=== PATIENT | female | born 1955 | race Caucasian/White ===

== ENCOUNTER 2018-11-28 19:31 | Emergency (ER) | payer OTHER, SELFPAY ==
[~2018-11-28] VITALS: Ht 160 cm; Wt 78.3 kg
[2018-11-28 19:54] VITALS: BP 135/76
== END 2018-11-28 20:55 | disposition home or self-care (01) ==
LOC: ED 20:44
DX: L20.84 Intrinsic (allergic) eczema (principal); Z87.891 Personal history of nicotine dependence
CPT/HCPCS: 99283; J7512; Q0177